=== PATIENT | male | born 1990 | race Caucasian/White ===

== ENCOUNTER 2020-03-26 10:11 | Emergency (ER) | payer BC ==
[~2020-03-26] VITALS: Ht 170.2 cm; Wt 70.8 kg
--- NOTE | 2020-03-26 10:30 | NUR ---
BRUISING TO LEFT LEG. L UPPER EXTREMITY PARESTHESIA. PATIENT A/OX4, BREATHING EVEN AND UNLABORED, AMBULATORY WITH STEADY GAIT. NO DISTRESS NOTED.
--- NOTE | 2020-03-26 11:03 | NUR ---
DR. KAUFFMAN AT BEDSIDE FOR EVAL.
[2020-03-26 11:27] LABS: BASOPHILS # (AUTO) 0.1 /CMM (0.0-0.2); EOSINOPHILS % (AUTO) 3.2 % (0.0-6.0); HEMATOCRIT 46 % (39-51); HEMOGLOBIN 16.1 g/dL (13.5-17.5); LYMPHOCYTES # (AUTO) 1.5 /CMM (0.8-4.8); LYMPHOCYTES % (AUTO) 29.7 % (20.0-44.0); MEAN CORPUSCULAR HGB CONC 35 g/dl (31.0-36.0); MEAN CORPUSCULAR VOLUME 91 fL (80-96); MONOCYTES # (AUTO) 0.3 /CMM (0.1-1.30); MONOCYTES % (AUTO) 6.1 % (2.0-12.0); NEUTROPHILS # (AUTO) 2.9 /CMM (1.8-8.9); PLATELET COUNT (AUTO) 193 /CMM (150-450); RED BLOOD CELL COUNT(AUTO) 5.04 MIL/uL (4.5-6.0); WHITE BLOOD COUNT (AUTO) 4.9 K/uL (4.3-11.0)
[2020-03-26 11:34] LABS: CALCIUM, SERUM 9.3 mg/dL (8.5-10.1); POTASSIUM 4.1 mmol/L (3.5-5.1)
--- NOTE | 2020-03-26 12:44 | NUR ---
FOLLOW UP APPOINTMENT SCHEDULED WITH DR. JAIMES AT FOR 11AM. [id number] Addendum: 03/26/20 at 1246 by [email or web address] FOLLOW UP APPOINTMENT SCHEDULED WITH DR. JAIMES AT FOR 11AM. [address]
[2020-03-26] MEDS ORDERED: APIX5TAB PO ×2 (13:13→13:19)
--- NOTE | 2020-03-26 13:30 | NUR ---
Patient discharged to home in stable condition. Written and verbal after care instructions given. Patient verbalizes understanding of instruction. Pt ambulatory with a steady gait
[2020-03-26 14:14] VITALS: BP 136/92
== END 2020-03-26 13:30 | disposition home or self-care (01) ==
LOC: ER 10:16
DX: I82.812 Embolism and thrombosis of superficial veins of left lower extremity (principal); S70.12XA Contusion of left thigh, initial encounter; Z79.899 Other long term (current) drug therapy; X58.XXXA Exposure to other specified factors, initial encounter; Y93.89 Activity, other specified; Y92.89 Other specified places as the place of occurrence of the external cause; Y99.8 Other external cause status
CPT/HCPCS: 36415; 80048-TC; 82550-TC; 85025-TC; 85378-TC; 93971-TC

== ENCOUNTER 2020-04-01 10:57 | Outpatient (CLI) | payer BC ==
[~2020-04-01 10:57] MED LIST: APIX5TAB PO
== END 2020-04-01 23:59 | disposition home or self-care (01) ==
LOC: MSC 10:57
PROVIDERS: ATTEND Internal Medicine
DX: I82.812 Embolism and thrombosis of superficial veins of left lower extremity (principal); Z79.01 Long term (current) use of anticoagulants